=== PATIENT | female | born 1990 | race Caucasian/White ===

== ENCOUNTER 2018-08-15 16:41 | Emergency (ER) | payer OTHER ==
[~2018-08-15] VITALS: Ht 167.6 cm; Wt 54.4 kg
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
[2018-08-15] MEDS ORDERED: ACETAMINOPHEN ES 500 MG TABLET ONE (16:56)
[2018-08-15] MEDS ORDERED: ACETAMINOPHEN ES 500 MG TABLET PO ONE (17:00)
--- NOTE | 2018-08-15 17:16 | NUR ---
PT REFUSED TO PROVIDE URINE SAMPLE. MD ABEL
--- NOTE | 2018-08-15 18:01 | NUR ---
PT BACK FROM CT OF HEAD
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
[2018-08-15 18:25] VITALS: BP 116/80
== END 2018-08-15 18:26 ==
LOC: ER 16:43
DX: S00.211A Abrasion of right eyelid and periocular area, initial encounter (principal); S09.8XXA Other specified injuries of head, initial encounter; Z76.5 Malingerer [conscious simulation]; Z60.2 Problems related to living alone; Y04.0XXA Assault by unarmed brawl or fight, initial encounter; Y93.89 Activity, other specified; Y92.89 Other specified places as the place of occurrence of the external cause; Y99.8 Other external cause status
CPT/HCPCS: 70450; 99284; A4606